=== PATIENT | male | born 1985 | race African-American/Black ===

== ENCOUNTER 2017-12-26 13:03 | Emergency (ER) | payer MEDICAID ==
[~2017-12-26] VITALS: Ht 172.7 cm; Wt 72.6 kg
[2017-12-26 13:05] VITALS: BP 120/81
[2017-12-26] MEDS ORDERED: Sodium Chloride 500ML 500 ML IV ONE (13:30)
[2017-12-26] MEDS ORDERED: LORazepam Inj 2mg/ml 1ml IV ONE (13:30)
[2017-12-26 14:02] LABS: BASOPHILS % (AUTO) 2.6 % (0.0-2.0); EOSINOPHILS % (AUTO) 4.4 % (0.0-3.0); HEMATOCRIT 38.4 % (42.0-52.0); LYMPHOCYTES % (AUTO) 48.2 % (20.0-45.0); MEAN CORPUSCULAR VOLUME 80 FL (80-99); MONOCYTES % (AUTO) 14.1 % (1.0-10.0); NEUTROPHILS % (AUTO) 30.6 % (45.0-75.0); PLATELET COUNT 203 K/UL (150-450); RED BLOOD COUNT 4.79 M/UL (4.70-6.10); RED CELL DISTRIBUTION WIDTH 14.2 % (11.6-14.8)
[2017-12-26 14:15] LABS: ANION GAP 3 mmol/L (5-15); BLOOD UREA NITROGEN 11 mg/dL (7-18); CALCIUM 8.4 MG/DL (8.5-10.1); CARBON DIOXIDE 31 MMOL/L (21-32); CHLORIDE 106 MMOL/L (98-107); CREATININE 0.9 MG/DL (0.55-1.30); POTASSIUM 3.7 MMOL/L (3.5-5.1); SODIUM 140 MMOL/L (136-145)
[2017-12-26 14:20] LABS: ALANINE AMINOTRANSFERASE 32 U/L (12-78); ALBUMIN 3.1 G/DL (3.4-5.0); ALBUMIN/GLOBULIN RATIO 0.8 (1.0-2.7); ALKALINE PHOSPHATASE 53 U/L (46-116); ASPARTATE AMINO TRANSFERASE 30 U/L (15-37); BILIRUBIN,TOTAL 0.3 MG/DL (0.2-1.0)
--- NOTE | 2017-12-26 14:37 | Diagnostic Imaging Report ---
Indications: Seizures, altered level of consciousness Technique: Spiral acquisitions obtained through the brain. Angled axial and coronal 5 x 5 mm slices were reconstructed. Total dose length product 1340.9 mGycm. CTDI vol(s) 70.38 mGy. Dose reduction achieved using automated exposure control Comparison: None. Findings: No acute intrarenal hemorrhage or edema, mass effect, nor midline shift. Normal pimentel-white differentiation. Normal-sized ventricles and extra axial CSF spaces. Visualized orbits and sinuses are unremarkable. The mastoids are clear. Intact calvarium Impression: Negative The CT scanner at [facility] is accredited by the [employer] and the scans are performed using protocols designed to limit radiation exposure to as low as reasonably achievable to attain images of sufficient resolution adequate for diagnostic evaluation.
[2017-12-26 15:20] VITALS: BP 119/82
--- NOTE | 2017-12-26 15:21 | Emergency Room Report ---
History of Present Illness General Chief Complaint: Altered Mental Status Source: Patient Present Illness HPI 32-year-old male presents ED for evaluation. Patient is status post seizure. Witnessed at [employer] store today. Possible head injury. Patient is post ictal upon arrival. No tongue trauma. No incontinence. Patient admits to history of seizures. States he takes clonazepam. States his seizures are likely triggered by anxiety. Admits to methamphetamine use. Denies alcohol use. Denies headache. Denies fevers or chills. No other aggravating relieving factors. Denies any other associated symptoms Allergies: Coded Allergies: No Known Allergies (Unverified , 12/26/17) Patient History Past Medical History: seizures Past Surgical History: none Pertinent Family History: none Social History: Reports: drug use; Denies: smoking, alcohol use Immunizations: UTD Reviewed Nursing Documentation: PMH: Agreed; PSxH: Agreed Nursing Documentation-PMH Past Medical History: No History, Except For Hx Seizures: Yes Review of Systems All Other Systems: negative except mentioned in HPI Physical Exam Vital Signs Date Time Temp Pulse Resp B/P (MAP) Pulse Ox O2 Delivery O2 Flow Rate FiO2 12/26/17 13:03 97.2 61 16 119/79 98 Room Air Sp02 EP Interpretation: reviewed, normal General Appearance: no apparent distress, alert, GCS 15, non-toxic Head: normocephalic, atraumatic Eyes: bilateral eye normal inspection, bilateral eye PERRL ENT: hearing grossly normal, normal pharynx, no angioedema, normal voice Neck: full range of motion, supple/symm/no masses Respiratory: chest non-tender, lungs clear, normal breath sounds, speaking full sentences Cardiovascular #1: regular rate, rhythm, no edema Cardiovascular #2: 2+ carotid (R), 2+ carotid (L), 2+ radial (R), 2+ radial (L) , 2+ dorsalis pedis (R), 2+ dorsalis pedis (L) Gastrointestinal: normal bowel sounds, non tender, soft, non-distended, no guarding, no rebound Rectal: deferred Genitourinary: normal inspection, no CVA tenderness Musculoskeletal: back normal, gait/station normal, normal range of motion, non- tender Neurologic: alert, oriented x3, responsive, motor strength/tone normal, sensory intact, speech normal Psychiatric: judgement/insight normal, memory normal, mood/affect normal, no suicidal/homicidal ideation Reflexes: 3+ bicep (R), 3+ bicep (L), 3+ tricep (R), 3+ tricep (L), 3+ knee (R) , 3+ knee (L) Skin: normal color, no rash, warm/dry, well hydrated Lymphatic: no adenopathy Medical Decision Making Diagnostic Impression: Primary Impression: Seizure Additional Impression: Substance abuse ER Course Hospital Course 32-year-old M presents to ED status post seizure. Differential diagnosis includes- breakthrough seizure, alcohol abuse, noncompliance with medication Clinical course Patient placed on stretcher. Initial history and physical I ordered labs, IV fluids, ativan, EKG, CT brain Labs-electrolytes okay, no leukocytosis, hemoglobin/hematocrit stable. Utox + BZs, amphetamines EKG - NSR, no acute ischemic changes interpeted by me CT Brain ok Patient allowed to rest is now awake alert oriented x3. Discussed findings with patient. Safe for discharge. We'll provide PMD referrals Diagnosis - seizure, substance abuse stable and discharged to home. Followup with PMD. Return to ED if symptoms recur or worsen Labs Test 12/26/17 13:30 12/26/17 14:30 White Blood Count 4.0 K/UL (4.8-10.8) Red Blood Count 4.79 M/UL (4.70-6.10) Hemoglobin 12.0 G/DL (14.2-18.0) Hematocrit 38.4 % (42.0-52.0) Mean Corpuscular Volume 80 FL (80-99) Mean Corpuscular Hemoglobin 25.1 PG (27.0-31.0) Mean Corpuscular Hemoglobin Concent 31.2 G/DL (32.0-36.0) Red Cell Distribution Width 14.2 % (11.6-14.8) Platelet Count 203 K/UL (150-450) Mean Platelet Volume 7.1 FL (6.5-10.1) Neutrophils (%) (Auto) 30.6 % (45.0-75.0) Lymphocytes (%) (Auto) 48.2 % (20.0-45.0) Monocytes (%) (Auto) 14.1 % (1.0-10.0) Eosinophils (%) (Auto) 4.4 % (0.0-3.0) Basophils (%) (Auto) 2.6 % (0.0-2.0) Sodium Level 140 MMOL/L (136-145) Potassium Level 3.7 MMOL/L (3.5-5.1) Chloride Level 106 MMOL/L (98-107) Carbon Dioxide Level 31 MMOL/L (21-32) Anion Gap 3 mmol/L (5-15) Blood Urea Nitrogen 11 mg/dL (7-18) Creatinine 0.9 MG/DL (0.55-1.30) Estimat Glomerular Filtration Rate > 60 mL/min (>60) Glucose Level 85 MG/DL (74-106) Calcium Level 8.4 MG/DL (8.5-10.1) Total Bilirubin 0.3 MG/DL (0.2-1.0) Aspartate Amino Transf (AST/SGOT) 30 U/L (15-37) Alanine Aminotransferase (ALT/SGPT) 32 U/L (12-78) Alkaline Phosphatase 53 U/L (46-116) Total Protein 7.0 G/DL (6.4-8.2) Albumin 3.1 G/DL (3.4-5.0) Globulin 3.9 g/dL Albumin/Globulin Ratio 0.8 (1.0-2.7) Salicylates Level 0.7 ug/mL (2.8-20) Acetaminophen Level < 2 MCG/ML (10-30) Serum Alcohol < 3 mg/dL Urine Opiates Screen Negative (NEGATIVE) Urine Barbiturates Screen Negative (NEGATIVE) Phencyclidine (PCP) Screen Negative (NEGATIVE) Urine Amphetamines Screen Positive (NEGATIVE) Urine Benzodiazepines Screen Positive (NEGATIVE) Urine Cocaine Screen Negative (NEGATIVE) Urine Marijuana (THC) Screen Negative (NEGATIVE) EKG Diagnostic Results Rate: normal Rhythm: NSR ST Segments: no acute changes ASA given to the pt in ED: No Rhythm Strip Diag. Results EP Interpretation: yes Rhythm: NSR, no PVC's, no ectopy CT/MRI/US Diagnostic Results CT/MRI/US Diagnostic Results : Imaging Test Ordered: CT Head Impression no acute process Last Vital Signs Date Time Temp Pulse Resp B/P (MAP) Pulse Ox O2 Delivery O2 Flow Rate FiO2 12/26/17 13:22 58 16 Room Air 12/26/17 13:05 97.2 120/81 100 Status: improved Disposition: HOME, SELF-CARE Condition: Stable Referrals: Derrick Gann [facility] Patient Instructions: Seizure, Adult, [id number] Bahman Carney MD Dec 26, 2017 15:21
[2017-12-26] MEDS ORDERED: KEPPRA500 M4 ORAL (15:31)
--- NOTE | 2017-12-28 16:40 | Cardiology Report ---
APPROVED REPORT EKG Measurement Heart [id number] FL [id number] [id number] Sinus bradycardia with premature atrial complexes with aberrant conduction Early repolarization Otherwise normal ECG
== END 2017-12-26 15:20 | disposition home or self-care (01) ==
LOC: EDBD 13:03 → EMR 13:37
DX: G40.909 Epilepsy, unspecified, not intractable, without status epilepticus (principal); F15.10 Other stimulant abuse, uncomplicated; F41.9 Anxiety disorder, unspecified
CPT/HCPCS: 36415; 70450; 80053; 80307; 80329; 82962; 85025; 93005; 96374; 99284; J7040